=== PATIENT | male | born 1995 | race Caucasian/White ===

== ENCOUNTER 2020-04-06 18:06 | Emergency (ER) | payer OTHER ==
[2020-04-06 19:13] LABS: BASOPHILS # (AUTO) 0.1 10^3/uL (0.0-0.1); BASOPHILS % (AUTO) 0.7 %; EOSINOPHILS # (AUTO) 0.1 10^3/uL (0.0-0.7); EOSINOPHILS % (AUTO) 1.2 %; HGB - HEMOGLOBIN 15.7 g/dL (14.0-18.0); LYMPHOCYTES # (AUTO) 2.2 10^3/uL (1.5-3.5); LYMPHOCYTES % (AUTO) 25.5 %; MEAN CORPUSCULAR HEMOGLOBIN 31.4 pg (27.0-31.0); MEAN CORPUSCULAR HGB CONC 35.9 g/dL (32.0-36.0); MEAN CORPUSCULAR VOLUME 87.4 fL (80.0-94.0); MEAN PLATELET VOLUME 8.5 fL (7.4-11.4); MONOCYTES # (AUTO) 0.7 10^3/uL (0.0-1.0); MONOCYTES % (AUTO) 7.7 %; NEUTROPHILS # (AUTO) 5.5 10^3/uL (1.5-6.6); NEUTROPHILS % (AUTO) 64.3 %; PLT - PLATELET COUNT 242 10^3/uL (130-450); RED CELL DISTRIBUTION WIDTH 12.2 % (12.0-15.0); WHITE BLOOD COUNT 8.6 x10^3/uL (4.8-10.8)
[2020-04-06 19:26] LABS: ALBUMIN 4.3 g/dL (3.2-5.5); ALBUMIN/GLOBULIN RATIO 1.3 (1.0-2.2); BILIRUBIN,TOTAL 0.6 mg/dL (0.2-1.0); CALCIUM 9.1 mg/dL (8.5-10.3); CREATININE 0.8 mg/dL (0.6-1.2); TOTAL PROTEIN 7.5 g/dL (6.7-8.2)
--- NOTE | 2020-04-06 20:12 | ED Physician Documentation ---
History of Present Illness - Stated complaint Stated Complaint: BLOODY STOOL - Chief complaint Chief Complaint: General - History obtained from History obtained from: Patient - History of Present Illness Timing: Today Pain level max: 0 Pain level now: 0 - Additonal information Additional information: Patient states that he had a bowel movement today followed by bright red blood per rectum x1. Otherwise asymptomatic. No abdominal pain. No fevers. Not on any medications at home. Review of Systems Constitutional: denies: Fever, Chills Respiratory: denies: Cough GI: denies: Abdominal Pain, Vomiting : denies: Dysuria Skin: denies: Rash Musculoskeletal: denies: Neck pain, Back pain Neurologic: denies: Headache PD PAST MEDICAL HISTORY - Past Medical History Past Medical History: No - Past Surgical History Past Surgical History: No - Present Medications Home Medications: Ambulatory Orders Medication Instructions Recorded Confirmed No Known Home Medications 04/06/20 04/06/20 - Allergies Allergies/Adverse Reactions: Allergies Allergy/AdvReac Type Severity Reaction Status Date / Time tree nut Allergy Respiratory Verified 04/06/20 18:22 - Social History Does the pt smoke?: No Smoking Status: Never smoker Does the pt drink ETOH?: No Does the pt have substance abuse?: No - Immunizations Immunizations are current?: Yes PD ED PE NORMAL - Vitals Vital signs reviewed: Yes - General General: Alert and oriented X 3, No acute distress - HEENT HEENT: Moist mucous membranes - Neck Neck: Supple, no meningeal sign - Cardiac Cardiac: RRR - Respiratory Respiratory: No respiratory distress, Clear bilaterally - Abdomen Abdomen: Soft, Non tender, Non distended - Rectal Rectal: Other (normal) - Derm Derm: Warm and dry - Neuro Neuro: Alert and oriented X 3 - Psych Psych: Normal mood, Normal affect Results - Vitals Vitals: Vital Signs - 24 hr 04/06/20 04/06/20 18:19 20:26 Temperature 36.8 C 36.5 C Heart Rate 80 60 Respiratory 18 20 Rate Blood Pressure 137/71 H 123/90 H O2 Saturation 99 100 Oxygen O2 Source Room air - Labs Labs: Laboratory Tests 04/06/20 04/06/20 19:08 19:08 WBC 8.6 RBC 5.00 Hgb 15.7 Hct 43.7 MCV 87.4 MCH 31.4 H MCHC 35.9 RDW 12.2 Plt Count 242 MPV 8.5 Neut # (Auto) 5.5 Lymph # (Auto) 2.2 [place] # (Auto) 0.7 Eos # (Auto) 0.1 Baso # (Auto) 0.1 Absolute Nucleated RBC 0.00 Nucleated RBC % 0.0 Sodium 139 Potassium 3.8 Chloride 103 Carbon Dioxide 28 Anion Gap 8.0 BUN 10 Creatinine 0.8 Estimated GFR (MDRD) 119 Glucose 97 Calcium 9.1 Total Bilirubin 0.6 AST 17 ALT 39 Alkaline Phosphatase 68 Total Protein 7.5 Albumin 4.3 Globulin 3.2 Albumin/Globulin Ratio 1.3 Lipase 30 PD MEDICAL DECISION MAKING - ED course Complexity details: reviewed results, considered differential, d/w patient, d/w family ED course: Patient with 1 episode of hematochezia today. Unclear etiology. Abdomen is soft, nontender nondistended. No peritoneal signs. No abdominal pain. Likely internal hemorrhoid. We will have him follow-up with his doctor for further care. Patient counseled regarding signs and symptoms for which I believe and urgent re-evaluation would be necessary. Patient with good understanding of and agreement to plan and is comfortable going home at this time This document was made in part using voice recognition software. While efforts are made to proofread this document, sound alike and grammatical errors may occur. Departure - Departure Disposition: 01 Home, Self Care Clinical Impression: Hematochezia Condition: Good Instructions: ED Hematochezia Stable Follow-Up: Elsa Aguilera MD [Provider Admit Priv/Credential] - Jamal Do MD [Provider Admit Priv/Credential] - [facility] [Provider Group] Comments: Return if you worsen. Follow-up with your doctor for further care. I have given you the numbers to a number of clinics in the local area. They will be able to follow-up with you for further care. Discharge Date/Time: 04/06/20 20:28
[2020-04-06 20:27] VITALS: BP 123/90
== END 2020-04-06 20:28 | disposition home or self-care (01) ==
LOC: ED 18:06
DX: K92.1 Melena (principal)
CPT/HCPCS: 36415; 80053; 83690; 85025; 99283; 99284

== ENCOUNTER 2022-11-18 20:46 | Outpatient (CLI) | payer OTHER | END 2022-11-18 23:59 | disposition left against medical advice (07) | LOC: EMS 20:46 | DX: M54.2 Cervicalgia (principal); F41.9 Anxiety disorder, unspecified ==

== ENCOUNTER 2022-11-22 19:38 | Emergency (ER) | payer OTHER ==
--- OUTSIDE RECORDS SUMMARY | 2022-11-22 20:23 | EXTERNAL MEDICAL SUMMARY RPT | Continuity of Care Document ---
Author Name Unknown Address [address] [place] [address] Phone Organization [facility] Address [address] [place] [address] Phone Care Team Providers Care Group Fitness Assistant Department Head Name Role Phone Unavailable Unavailable Unavailable Syd Rothman Md Unavailable Unavailable Medications date description facility 2022-11-17 00:00 famotidine All 2022-11-17 00:00 methylprednisolone All 2022-11-17 00:00 cetirizine All 2022-11-17 00:00 methylprednisolone All 2022-11-17 00:00 methylprednisolone All 2022-11-17 00:00 cetirizine All 2022-11-17 00:00 famotidine All 2022-11-17 00:00 DEXAMETHASONE SODIUM PHOSPHATE All 2022-11-17 00:00 famotidine All 2022-11-17 00:00 cetirizine All 2022-11-17 00:00 famotidine All 2022-11-17 00:00 cetirizine All 2022-11-17 00:00 methylprednisolone All Problems date description facility 2022-11-17 00:00 Urticaria All 2022-11-17 00:00 Unspecified urticaria All 2022-11-17 00:00 Urticaria, unspecified All Procedures date description facility 2022-11-17 00:00 Visit Code Hold All 2022-11-17 00:00 IM or SQ Injection All 2022-11-17 00:00 Dexamethasone Sodium Phosphate Inj 10mg/1mL All Social History date description facility 2022-11-18 00:00 Unknown if ever smoked All Vital Signs date measurement value units 2022-11-17 00:00 BMI 38.51 kg/m2 2022-11-17 00:00 BP_diastolic 86 mmHg 2022-11-17 00:00 BP_systolic 133 mmHg 2022-11-17 00:00 heart_rate 102 /min 2022-11-17 00:00 height_metric 170.18 cm 2022-11-17 00:00 height_standard 67 in 2022-11-17 00:00 respiration_rate 18 /min 2022-11-17 00:00 temperature_metric 36.67 C 2022-11-17 00:00 temperature_standard 98 F 2022-11-17 00:00 weight_metric 111.13 kg 2022-11-17 00:00 weight_standard 245 lb
[2022-11-22 22:45] VITALS: BP 129/100
--- NOTE | 2022-11-22 23:38 | ED Physician Documentation ---
PD HPI HEENT - Stated complaint Stated Complaint: ALLERGIC REACTION - Chief complaint Chief Complaint: Heent - History obtained from History obtained from: Patient - Additional information Additional information: The patient comes to the emergency department chief complaint of sensation of his throat closing. He states it happens intermittently and it usually gets worse only if he focuses on his throat. 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 He has not been exposed any further tree nuts and has not had any other allergic symptoms. No swelling of his facial or oropharyngeal structures. No itching or rash. The patient states that he will start to think about his throat and then he begins to Feels as though it is closing. He states that the more he thinks about it the more he becomes panicked and the more he feels as though he will choke. However, if he can distract himself or think of something else, he st ates the symptoms go away on their own. He has had several episodes recently of varying lengths, and all of them have gone away spontaneously without further symptom development. The patient denies any symptoms of that sort right now. He is going to be taking a flight to the [facility] soon and is concerned that he may have an attack on the plane. PD PAST MEDICAL HISTORY - Past Surgical History Past Surgical History: No - Present Medications Home Medications: Ambulatory Orders Medication Instructions Recorded Confirmed ALPRAZolam [Xanax] 0.25 mg PO Q6H PRN #12 tablet 11/22/22 - Allergies Allergies/Adverse Reactions: Allergies Allergy/AdvReac Type Severity Reaction Status Date / Time tree nut Allergy Respiratory Verified 11/22/22 19:47 - Social History Does the pt smoke?: No Smoking Status: Never smoker Does the pt drink ETOH?: No Does the pt have substance abuse?: No - Immunizations Immunizations are current?: Yes PD ED PE NORMAL - Vitals Vital signs reviewed: Yes - General General: Alert and oriented X 3, No acute distress, Well developed/nourished - HEENT HEENT: Atraumatic, PERRL, EOMI, Moist mucous membranes, Pharynx benign (No edema of the oropharyngeal structures.) - Neck Neck: Supple, no meningeal sign, No adenopathy - Cardiac Cardiac: RRR, No murmur, Strong equal pulses - Respiratory Respiratory: No respiratory distress, Clear bilaterally - Abdomen Abdomen: Soft, Non tender, Non distended - Derm Derm: Normal color, Warm and dry, No rash - Extremities Extremities: No deformity - Neuro Neuro: Alert and oriented X 3 - Psych Psych: Normal mood, Normal affect Results - Vitals Vitals: Vital Signs - 24 hr 11/22/22 11/22/22 19:43 22:44 Temperature 36.3 C L Heart Rate 84 73 Respiratory 16 20 Rate Blood Pressure 130/87 H 129/100 H O2 Saturation 98 100 Oxygen O2 Source Room air PD Medical Decision Making - ED course Complexity details: considered differential, d/w patient ED course: The patient was very well-appearing at this time in the was no evidence of an ongoing allergic reaction. Additionally, the intermittent, minutes long episodes of feeling as though his throat was closing more redirectable and not accompanied by any other indicators of allergic reaction. As such, I suspected that these were probably not related to his allergic reaction but may represent anxiety of some sort. I have prescribed a small prescription for Xanax for the patient. I have discussed with him the importance of follow-up in primary care. We have discussed the usual indications for return. Departure - Departure Disposition: 01 Home, Self Care Clinical Impression: Anxiety attack Condition: Stable Instructions: ED Panic Attack Follow-Up: Nora Keys PA [Provider Admit Priv/Credential] - Prescriptions: ALPRAZolam [Xanax] 0.25 mg PO Q6H PRN #12 tablet PRN Reason: Anxiety Comments: Your prescription has been electronically transmitted to the [facility] pharmacy in [place]. Your episodes do not appear to be related to allergic reaction, as you do not have any other findings consistent with an allergic reaction at this point in time, and you have been able to overcome the episodes spontaneously. At this point, it is best to use nonmedication modalities to try to calm yourself down. If you feel you absolutely need to take medication, then you may do so, but try to keep this to a minimum for now. You should get established with primary care as soon as possible. Discharge Date/Time: 11/22/22 23:49
== END 2022-11-22 23:49 | disposition home or self-care (01) ==
LOC: ED 19:38
DX: F41.9 Anxiety disorder, unspecified (principal)
CPT/HCPCS: 99282; 99283

== ENCOUNTER 2023-04-04 12:04 | Outpatient (CLI) | payer OTHER ==
[2023-04-04 18:12] LABS: BASOPHILS # (AUTO) 0.1 10^3/uL (0.0-0.1); BASOPHILS % (AUTO) 0.6 %; EOSINOPHILS # (AUTO) 0.1 10^3/uL (0.0-0.7); EOSINOPHILS % (AUTO) 1.6 %; HCT - HEMATOCRIT 48.6 % (42.0-52.0); HGB - HEMOGLOBIN 16.7 g/dL (14.0-18.0); LYMPHOCYTES # (AUTO) 2.5 10^3/uL (1.5-3.5); LYMPHOCYTES % (AUTO) 30.8 %; MEAN CORPUSCULAR HEMOGLOBIN 30.4 pg (27.0-31.0); MEAN CORPUSCULAR HGB CONC 34.4 g/dL (32.0-36.0); MEAN CORPUSCULAR VOLUME 88.5 fL (80.0-94.0); MEAN PLATELET VOLUME 9.4 fL (7.4-11.4); MONOCYTES # (AUTO) 0.5 10^3/uL (0.0-1.0); MONOCYTES % (AUTO) 6.4 %; NEUTROPHILS # (AUTO) 4.8 10^3/uL (1.5-6.6); NEUTROPHILS % (AUTO) 60.2 %; PLT - PLATELET COUNT 271 10^3/uL (130-450); RED BLOOD COUNT 5.49 10^6/uL (4.70-6.10); RED CELL DISTRIBUTION WIDTH 12.4 % (12.0-15.0)
[2023-04-04 18:28] LABS: ALBUMIN 4.6 g/dL (3.2-5.5); ALBUMIN/GLOBULIN RATIO 1.6 (1.0-2.2); ALKALINE PHOSPHATASE 74 IU/L (42-121); ALT ALANINE AMINOTRANSFERASE 25 IU/L (10-60); AST ASPARTATE AMINOTRANSFERASE 13 IU/L (10-42); BILIRUBIN,TOTAL 0.6 mg/dL (0.2-1.0); BUN - BLOOD UREA NITROGEN 12 mg/dL (6-20); CALCIUM 9.8 mg/dL (8.5-10.3); CARBON DIOXIDE - CO2 29 mmol/L (21-32); CHLORIDE 105 mmol/L (101-111); CHOLESTEROL 159 mg/dL; GFR - MDRD 90 (>89); GLUCOSE 87 mg/dL (74-104); HDL CHOLESTEROL 32 mg/dL; LDL CHOLESTEROL,CALCULATED 100 mg/dL; LDL/HDL RATIO 3.1 (<3.6); POTASSIUM 4.1 mmol/L (3.5-4.5); SODIUM 140 mmol/L (135-145); TOTAL PROTEIN 7.5 g/dL (6.4-8.9); TRIGLYCERIDES 137 mg/dL (48-352); VLDL CHOLESTEROL 27 mg/dL
== END 2023-04-04 12:05 | disposition home or self-care (01) ==
LOC: LAB.N 12:04
PROVIDERS: ATTEND Nurse Practitioner
DX: L50.9 Urticaria, unspecified (principal); Z13.220 Encounter for screening for lipoid disorders
CPT/HCPCS: 36415; 80053; 80061; 83721; 85025